=== PATIENT | female | born 1995 | race Caucasian/White ===

== ENCOUNTER 2021-02-19 12:42 | Emergency (ER) | payer OTHER ==
[~2021-02-19] VITALS: Ht 165.1 cm; Wt 113.4 kg
--- NOTE | ~2021-02-19 | EMS ---
[address] [address] EMS Patient Care Report Name: PING GERMAIN Room #: DEP MEIR Kaur#: [id number] Admission: 02/19/21 Attend Phys: Discharge: 02/19/21 Date of : [birth year] Report #: [id number] THIS REPORT FOR: //name// Report Transmitted: 02/20/2021 09:36 EMS Care Summary [place], [place]/[facility] Incident [id number] @ 02/19/2021 12:13 Incident Location [address] [place] [address] Patient PING GERMAIN Female, 25 Years 1995 Patient Address [address] [place] [address] Patient History None Reported, Patient Allergies No known allergies, Patient Medications None Reported, Chief Complaint lower R flank pain Disposition Transported No Lights/[place] Reason Sick Person Transported To [facility] Narrative 25 y/o female c/o r flank pain Upon arrival at the urgent care the pt was in the bathroom. We stood and waited for her to get out of the bathroom. The [place] [address] EMS Patient Care Report Name: PING GERMAIN Room #: DEP Vincent#: [id number] Admission: 02/19/21 Attend Phys: Discharge: 02/19/21 Date of : [birth year] Report #: [id number] met us. She is awake, conscious A&O x 4 with a GCS of 15. She has a patent airway, breathing is normal, and has a strong reg radial pulse. The pt states about 2 hours ago she began getting a consistent sharp stabbing pain in her R lower flank of her back right side. The pt gathered her purse and belongings. She ambulated out to the ambulance entered the rear doors and sat on the bench seat. VS were obtained. The pt was transported to [place] with no incidents or changes with the pt during transport. The pt rates her pain a 10/10 with no relief since the pain started. The pt ambulated into the ED went to room 11 where report was given and EMS returned to service. Initial Vitals @12:29P: 79,R: 14,BP: 128/84,Pain: 10/10,GCS: 15,SpO2: 99,Revised Trauma: 12, Assessments @12:31MENTAL:Place Oriented,Event Oriented,Person Oriented,Time Oriented,SKIN:HEENT:Head/Face: No Abnormalities,Neck/Airway: No Abnormalities,LUNG SOUNDS:General: No Abnormalities,ABDOMEN:General: No Abnormalities,PELVIS//GI:No Abnormalities,EXTREMITIES:Capillary Refill: Right Upper: < 2 Sec,Capillary Refill: Left Upper: < 2 Sec,Left Arm: No Abnormalities,Right Arm: No Abnormalities,Left Leg: No Abnormalities,Right Leg: No Abnormalities,PULSE:Radial: 2+ Normal,NEURO:No Abnormalities, Impression Kidney stones Procedures @12:30ALS AssessmentResponse: UnchangedSucceeded Timeline 11:56,Call Received 11:56,Dispatch Notified 12:13,Dispatched 12:15,En Route 12:22,On Scene 12:23,At Patient 12:29,BP: 128/84 M,PULSE: 79,RR: 14 R,SPO2: 99 Ox,ETCO2: ,BG: ,PAIN: 10,GCS: 15, 12:30,Depart Scene 12:30,ALS Assessment,Response: UnchangedSucceeded, 12:37,At Destination 12:54,Call Closed Disclaimer v1.1 Copyright 2020 [employer] This EMS Care Summary contains data elements from the applicable legal record (which may be displayed differently). It is designed to provide pertinent [address] [address] EMS Patient Care Report Name: PING GERMAIN Room #: DEP Vincent#: [id number] Admission: 02/19/21 Attend Phys: Discharge: 02/19/21 Date of : [birth year] Report #: [id number] information for the following purposes: continuity of care, clinical quality, and state data reporting. The complete legal record is available to ED staff and administrators of the receiving hospital in [employer] Patient Tracker. All data is provided "as is."
[2021-02-19 13:02] LABS: ABSOLUTE NEUTROPHILS 9.5 thou/uL (1.4-8.2); BASOPHILS 0.2 % (0.0-2.0); EOSINOPHILS 0.7 % (0.0-3.0); HEMATOCRIT 40.7 % (37.0-47.0); HEMOGLOBIN 14.1 gm/dL (12.0-15.0); MCH 29.9 pg (26.0-34.0); MCHC 34.7 g/dL (28.0-37.0); MCV 86.3 fL (80.0-100.0); MONOCYTES 4.6 % (1.0-8.0); PLATELET COUNT 283 thou/uL (150-400); POLYS 76.5 % (36.0-66.0); RBC 4.71 mil/uL (4.20-5.00); RDW 12.2 % (10.5-14.5); WBC 12.4 thou/uL (4.0-11.0)
[2021-02-19 13:13] LABS: CALCIUM 9.4 mg/dL (8.5-10.1); CREATININE 1.3 mg/dL (0.6-1.0); POTASSIUM 3.9 mmol/L (3.5-5.1)
[2021-02-19 13:20] LABS: ALBUMIN 4.1 g/dL (3.4-5.0); TOTAL BILIRUBIN 0.5 mg/dL (0.2-1.0); TOTAL PROTEIN 8.2 g/dL (6.4-8.2)
[2021-02-19 13:46] LABS: URINE BLOOD 3+ (Negative); URINE CLARITY CLOUDY; URINE COLOR BROWN; URINE GLUCOSE-RANDOM* NEGATIVE (Negative); URINE KETONES 3+ (Negative); URINE LEUKOCYTES-REFLEX NEGATIVE (Negative); URINE NITRITE-REFLEX NEGATIVE (Negative); URINE PROTEIN (DIPSTICK) 1+ (Negative)
[2021-02-19 13:49] LABS: ICTOTEST (BILI CONFIRMATORY) Negative (Negative); URINE BILIRUBIN NEGATIVE (Negative); URINE REDUCING SUBSTANCE NEGATIVE
[2021-02-19 13:58] LABS: URINE RBC >20 Many /HPF (NONE SEEN)
[2021-02-19 13:59] LABS: AMORPHOUS URATES Moderate /LPF (None Seen); CASTS None Seen /LPF (None Seen); SQUAMOUS None Seen /LPF (0-3); URINE WBC-REFLEX 0-5 Rare /HPF (0-5)
[2021-02-19] MEDS ORDERED: IBUPROFEN 800800 M1 PO (15:58)
[2021-02-19] MEDS ORDERED: APAP W/CODEINE1 TA2 PO (15:58)
[2021-02-19 16:00] VITALS: BP 109/60
== END 2021-02-19 16:00 | disposition home or self-care (01) ==
LOC: ER 12:42
PROVIDERS: Emergency Medicine
DX: N20.0 Calculus of kidney (principal); Z87.442 Personal history of urinary calculi

== ENCOUNTER 2021-02-25 02:25 | Inpatient (IN) | payer OTHER ==
[~2021-02-25] VITALS: Ht 165.1 cm; Wt 113.4 kg
[2021-02-25] VITALS (12 sets, daily range): BP systolic 112–153; BP diastolic 57–104
[~2021-02-25 02:25] MED LIST: APAP W/CODEINE1 TA2 PO; IBUPROFEN 800800 M1 PO
[2021-02-25 02:58] LABS: URINE BILIRUBIN NEGATIVE (Negative); URINE BLOOD NEGATIVE (Negative); URINE CLARITY CLEAR; URINE COLOR YELLOW; URINE GLUCOSE-RANDOM* NEGATIVE (Negative); URINE KETONES TRACE (Negative); URINE LEUKOCYTES-REFLEX NEGATIVE (Negative); URINE NITRITE-REFLEX NEGATIVE (Negative); URINE PROTEIN (DIPSTICK) NEGATIVE (Negative); URINE SPECIFIC GRAVITY >= 1.030 (1.005-1.035); URINE UROBILINOGEN 0.2 E.U./dl (0.2-1.0)
[2021-02-25 03:06] LABS: ABSOLUTE NEUTROPHILS 7.8 thou/uL (1.4-8.2); BASOPHILS 0.2 % (0.0-2.0); EOSINOPHILS 2.2 % (0.0-3.0); HEMATOCRIT 39.5 % (37.0-47.0); HEMOGLOBIN 13.6 gm/dL (12.0-15.0); MCH 29.5 pg (26.0-34.0); MCHC 34.4 g/dL (28.0-37.0); MCV 85.7 fL (80.0-100.0); PLATELET COUNT 288 thou/uL (150-400); POLYS 69.6 % (36.0-66.0); RBC 4.61 mil/uL (4.20-5.00); RDW 12.4 % (10.5-14.5); WBC 11.2 thou/uL (4.0-11.0)
[2021-02-25 03:11] LABS: CREATININE 1.2 mg/dL (0.6-1.0); POTASSIUM 3.6 mmol/L (3.5-5.1)
--- NOTE | 2021-02-25 14:22 | NUR ---
ASSUMED PT CARE AT 1300 FROM ED. PT IS ALERT & ORIENTED X4. PT HAS IV SITE ON RAC RUNNING NS @100ML/HR. PT IS UP AD DEJON. PT HAS BEEN NPO. WILL HAVE SURGERY TONIGHT AT 1800. PT IS ON ROOM AIR. FINISHED ADMISSION. PT SIGNIFICANT OTHER AT THE BEDSIDE. NO C/O OF PAIN, NAUSEA AND VOMITING. WILL CONTINUE TO MONITOR PT. FOLLOW POC.
[2021-02-26 00:15] VITALS: BP 142/89
--- NOTE | 2021-02-26 03:03 | NUR ---
RECIEVED REPORT FROM POST OP NURSE BURAK. PT BACK IN ROOM S/P SURGERY, AT BEDSIDE. VSS TAKEN ORDERED. R AC PIV CDI, PATENT. ASSISTED PT TO BEDSIDE COMMODE, URINATED WITHOUT DIFFICULTY, MILD HEMATURIA NOTED, PROVIDED PT EDUCATION TO PT ON WHAT TO EXPECT. VERBALIZED APPRECATION. PT SETTLED IN TO BED, PROVIDED THERAPUETIC COMMUNICATION D/T BEING TEARFUL AND INCREASED LEVEL OF ANXIETY. PT CALMED DOWN AND WAS PLEASANT AND CALM. PT PROVIDED WITH SNACKS AND FULL LIQUIDS AND INSTRUCTED TO PT TO START SMALL AND GO SLOW TO ENSURE PT CAN KEEP EVERYTHING DOWN. NO DIFFICULTIES WITH EATING OR DRINKING, NO EMESIS. PTS GOAL VERBALIZED TO THIS NURSE IS TO D/C TOMORROW. PT DOING WELL, DENIES ANY OTHER NEEDS AT THIS TIME, WILL CONTINUE TO MONITOR. CALL LIGHT IN REACH.
[2021-02-26 04:20] VITALS: BP 139/87
[2021-02-26 06:42] LABS: HEMATOCRIT 39.2 % (37.0-47.0); HEMOGLOBIN 13.5 gm/dL (12.0-15.0); MCH 29.8 pg (26.0-34.0); MCHC 34.4 g/dL (28.0-37.0); MCV 86.6 fL (80.0-100.0); RBC 4.53 mil/uL (4.20-5.00); RDW 12.4 % (10.5-14.5); WBC 8.9 thou/uL (4.0-11.0)
[2021-02-26 06:58] LABS: CALCIUM 8.6 mg/dL (8.5-10.1); POTASSIUM 3.6 mmol/L (3.5-5.1)
[2021-02-26 08:32] VITALS: BP 138/89
[2021-02-26] MEDS ORDERED: TYLENOL 8 HOUR650 MG PO (13:56)
[2021-02-26] MEDS ORDERED: FLOMAX0.4 MG PO (13:56)
[2021-02-26 15:26] VITALS: BP 138/89
--- NOTE | 2021-02-26 19:15 | NUR ---
ASSUMED PT CARE AROUND 0700. PT ALERT X ORIENTED X 4. ON ROOM AIR. IV RT AC SALINE LOCKED. UP X AD DEJON.ON REGULAR DIET.AMBULATE SELF TO THE BATHROOM. FALL PRECAUTION IN PLACE, CALL LIGHT IN REACH, CALLS APPROPRIATELY. DISCHARGET TODAY AROUND 17O0, FENTANYL WAS GIVEN ABOUT 30-45 MINUTES BEFORE DISCHARGE THE PAIN WAS 6, COULDN'T REASSES THE PAIN THE PATIENT LEFT.
--- NOTE | 2021-02-27 13:08 | PATH ---
[facility] [address] [place] [address] PATHOLOGY RPT PROCEDURE Name: LONG KOCH Room #: 448-P [facility] IN M.R.#: [id number] Admission: 02/25/21 Date of : [birth year] Discharge: 02/26/21 Report #: [id number] Path Case #: [id number] [facility] Accession Number: [id number] . 01 Material submitted: . kidney - RIGHT KIDNEY STONES. Modifiers: right . 01 Clinical history: . CYSTO W/ URETEROSCOPY, STONE MANIPULATION . 02 Diagnosis: Right kidney calculus: - Consistent with calculus. - The specimen is sent out for further processing. - Report pending outside analysis with results to follow in an addendum. [facility] 02/26/2021 1313 Local . 02 Electronically signed: . Ann-Marie Mcrae MD, Pathologist NPI- [id number] . 01 Gross description: . The specimen is received fresh, labeled "Long Koch, right kidney stone". It consists of light yellow-chirinos calculus measuring 0.3 x 0.2 x 0.2 cm. The specimen is forwarded to sendouts for further processing.([facility]; 02/26/2021) [facility] 02/26/2021 1221 Local . 02 Pathologist provided ICD-10: N20.0 . 02 CPT . 967651 Specimen Comment: A courtesy copy of this report has been sent to [phone], [phone] Specimen Comment: [phone] Specimen Comment: Report sent to / DR GOODMAN Specimen Comment: A duplicate report has been generated due to demographic updates. Performed at: [address], [place] [id number] MD Eduardo Chaudhary MD Phone: [phone] Performed at: [address] [id number] MD Ann-Marie Mcrae MD Phone: [phone]
== END 2021-02-26 16:09 | disposition home or self-care (01) | DRG 660 ==
LOC: ER 02:25 → EROBS 03:25 → 4S 12:55
PROVIDERS: Emergency Medicine; Nurse Practitioner Family; ADMIT Hospitalist; ATTEND Hospitalist
PROC: 0T768DZ Dilation of Right Ureter with Intraluminal Device, Via Natural or Artificial Opening Endoscopic (ICD-10-PCS; principal; 2021-02-25)
PROC: 0TC68ZZ Extirpation of Matter from Right Ureter, Via Natural or Artificial Opening Endoscopic (ICD-10-PCS; 2021-02-25)
PROC: BT1D1ZZ Fluoroscopy of Right Kidney, Ureter and Bladder using Low Osmolar Contrast (ICD-10-PCS; 2021-02-25)
DX: N20.2 Calculus of kidney with calculus of ureter (principal); N17.9 Acute kidney failure, unspecified; Z68.41 Body mass index [BMI] 40.0-44.9, adult; E66.9 Obesity, unspecified; Z20.822 Contact with and (suspected) exposure to COVID-19; Z87.442 Personal history of urinary calculi; Z79.899 Other long term (current) drug therapy
CPT/HCPCS: 10195; 50010; 50101; 50164; 51624; 51767; 56674; 56815; 57160; 58511; 58565; 62110; 62900; 70005